=== PATIENT | male | born 1965 | race Hispanic/Latino ===

== ENCOUNTER 2017-04-26 17:42 | Emergency (ER) | payer SELFPAY ==
[2017-04-26] MEDS ORDERED: ASPIRIN 325 MG TABLET ONE (18:12)
[2017-04-26 18:21] LABS: BASOPHILS % (AUTO) 0.9 % (0.0-5.0); EOSINOPHILS % (AUTO) 5.4 % (0.0-8.0); HEMATOCRIT 45.5 % (42-54); MEAN CORPUSCULAR HEMOGLOBIN 31.2 pg (27.0-33.0); MEAN CORPUSCULAR HGB CONC 33.6 g/dL (32.0-36.0); MONOCYTES % (AUTO) 9.6 % (3.0-13.0); NEUTROPHILS % (AUTO) 61.1 % (40.0-77.0); NUCLEATED RED BLOOD CELLS 0.1 % (0.0-0.19); PLATELET COUNT (AUTO) 306 K/uL (130-400); RED BLOOD CELL COUNT(AUTO) 4.89 MIL/uL (4.50-6.20); RED CELL DISTRIBUTION WIDTH 12.8 % (11.0-15.5); WHITE BLOOD COUNT (AUTO) 12.4 K/uL (4.8-10.8)
[2017-04-26 18:40] LABS: APPEARANCE,URINE Clear (CLEAR); BILIRUBIN,URINE Negative (NEGATIVE); COLOR,URINE Yellow (YELLOW); GLUCOSE, URINE (UA) Negative (NEGATIVE); KETONES,URINE Negative (NEGATIVE); LEUKOCYTE ESTERASE ,URINE Negative (NEGATIVE); NITRATE,URINE Negative (NEGATIVE); OCCULT BLOOD,URINE Negative (NEGATIVE); PROTEIN,URINE Negative (NEGATIVE)
[2017-04-26 18:40] LABS: CARBON DIOXIDE 28 mmol/L (21-32); CHLORIDE 100 mmol/L (101-111); GLOMERULAR FILTR. RATE CALC 84 mL/min (>60); GLUCOSE,RANDOM 135 mg/dL (70-105); POTASSIUM 3.6 mmol/L (3.5-5.1); SODIUM SERUM 137 mmol/L (136-145); UREA NITROGEN, BLOOD 13 mg/dL (7-18)
[2017-04-26 18:49] LABS: AMPHET/METH SCREEN,URINE NEGATIVE (NEGATIVE); BARBITURATE SCREEN, URINE NEGATIVE (NEGATIVE); BENZODIAZEPINES SCREEN,URINE NEGATIVE (NEGATIVE); CANNABINOID SCREEN,URINE NEGATIVE (NEGATIVE); COCAINE SCREEN,URINE POSITIVE (NEGATIVE); OPIATE SCREEN,URINE NEGATIVE (NEGATIVE); PHENCYCLIDINE SCREEN,URINE NEGATIVE (NEGATIVE)
[2017-04-26 18:54] LABS: ALANINE AMINOTRANSFERASE 37 U/L (12-78); ALBUMIN 3.5 g/dL (3.5-5.0); ASPARTATE AMINOTRANSFERASE 21 U/L (10-37); BILIRUBIN,TOTAL 0.2 mg/dL (0.2-1.0); CREATINE KINASE MB < 0.5 ng/mL (0.5-3.6); CREATINE KINASE, TOTAL 93 U/L (21-232); MYOGLOBIN 21 ng/mL (10-92); TOTAL PROTEIN, SERUM 7.9 g/dL (6.0-8.3)
[2017-04-26] MEDS ORDERED: KETOROLAC TROMETHAMINE 15MG/ML ONE (19:03)
== END 2017-04-26 21:40 | disposition home or self-care (01) ==
LOC: EDH 17:42
DX: R09.1 Pleurisy (principal); Z72.0 Tobacco use
CPT/HCPCS: 36415; 71046; 80053; 80305; 81003; 82550; 82553; 83874; 84484; 85025; 85378; 87804 ×2; 93005; 96374; 99285; J1885

== ENCOUNTER 2023-10-31 06:08 | Observation (INO) | payer OTHER ==
[2023-10-28 09:41] LABS: BASOPHILS # (AUTO) 0.08 K/uL (0.00-0.20); BASOPHILS % (AUTO) 0.7 % (0.0-5.0); EOSINOPHILS # (AUTO) 0.29 K/uL (0.00-0.70); EOSINOPHILS % (AUTO) 2.7 % (0.0-8.0); HEMATOCRIT 44.8 % (42-54); IMMATURE GRANULOCYTE ABSOLUTE 0.05 K/uL (0-1); LYMPHOCYTES % (AUTO) 28.1 % (21.0-51.0); MEAN CORPUSCULAR HEMOGLOBIN 30.8 pg (27.0-33.0); MEAN CORPUSCULAR HGB CONC 33.3 g/dL (32.0-36.0); MEAN CORPUSCULAR VOLUME 92.8 fL (79-99); MONOCYTES # (AUTO) 1.1 K/uL (0.1-1.0); MONOCYTES % (AUTO) 9.9 % (3.0-13.0); NEUTROPHILS # (AUTO) 6.2 K/uL (1.8-7.7); NEUTROPHILS % (AUTO) 58.1 % (40.0-77.0); PLATELET COUNT (AUTO) 299 K/uL (130-400); RED BLOOD CELL COUNT(AUTO) 4.83 MIL/uL (4.50-6.20); WHITE BLOOD COUNT (AUTO) 10.7 K/uL (4.8-10.8)
[2023-10-28 09:45] VITALS: BP 124/81; PULSE 71; RESP 19
[2023-10-28 09:54] LABS: INR 0.94 (0.85-1.15); PROTHROMBIN TIME 10.2 SEC (9.6-11.6)
[2023-10-28 09:55] LABS: PARTIAL THROMBOPLASTIN TIME 26.2 SEC (26.3-35.5)
[2023-10-28 09:57] LABS: ALBUMIN 3.7 g/dL (3.5-5.0); CREATININE 0.9 mg/dL (0.5-1.3); POTASSIUM 4.5 mmol/L (3.5-5.1)
[2023-10-31] VITALS (29 sets, daily range): BP systolic 124–158; BP diastolic 73–91; PULSE 76–101; RESP 15–19; O2SAT 97
[~2023-10-31] VITALS: Ht 167.6 cm; Wt 72.9 kg
[2023-10-31] MEDS ORDERED: ACETAMINOPHEN 1,000 MG/100 ML VIAL IV ONE (06:37)
[2023-10-31] MEDS ORDERED: FAMOTIDINE 20MG VIAL IV ONE (06:37)
[2023-10-31] MEDS: CEFAZOLIN SODIUM 2 GM VIAL ONE (06:45)
[2023-10-31] MEDS: LACTATED RINGERS 1000ML 1,000 ML IV ONE (06:46)
[2023-10-31] MEDS ORDERED: ROPIVACAINE 0.5% 5MG/ML 30ML ONE ×2 (06:47→06:53)
[2023-10-31] MEDS ORDERED: PROPOFOL 10 MG/ML 20ML VIAL IV ONE (06:51)
[2023-10-31] MEDS ORDERED: LIDOCAINE PF 100MG/5ML (2%) SYRINGE 5ML ONE (06:51)
[2023-10-31] MEDS ORDERED: ROCURONIUM BROMIDE 10MG/1ML 5ML VL ONE (06:52)
[2023-10-31] MEDS ORDERED: FENTANYL CITRATE PF 50 MCG/1 ML 2ML VIAL ONE (06:52)
[2023-10-31] MEDS ORDERED: TRANEXAMIC ACID 1000MG/10ML ONE (06:53)
[2023-10-31] MEDS ORDERED: KETOROLAC 30MG VIAL (30MG/ML) ONE (06:53)
[2023-10-31] MEDS ORDERED: FERROUS FUMARATE 324 MG TABLET PO PRN (07:00)
[2023-10-31] MEDS ORDERED: DiphenhydrAMINE HCL 50 MG/ML VIAL IVP PRN (07:00)
[2023-10-31] MEDS: 0.9%NACL 1000ML 1,000 ML IV SCH (07:00)
[2023-10-31] MEDS ORDERED: ONDANSETRON 4MG INJ IVP PRN (07:00)
[2023-10-31] MEDS ORDERED: CYCLOBENZAPRINE HCL 10 MG TABLET PO PRN (07:00)
[2023-10-31] MEDS: TRANEXAMIC ACID 1000MG/10ML IV ONE (07:03)
[2023-10-31] MEDS ORDERED: DEXAMETHASONE SOD PHOSPHATE 10MG/ML 1ML VIAL ONE (07:13)
[2023-10-31] MEDS ORDERED: ONDANSETRON 4MG INJ ONE (07:13)
[2023-10-31] MEDS ORDERED: KETAMINE 50MG/ML SYRINGE 50 MG/ML DISP.SYRIN ONE (07:47)
[2023-10-31] MEDS ORDERED: NEOSTIGMINE METHYLSULFATE 1MG/ML IV ONE (08:41)
[2023-10-31] MEDS ORDERED: GLYCOPYRROLATE 0.2 MG/ML 5 ML VIAL ONE (08:41)
[2023-10-31] MEDS: MEPERIDINE-PF 25 MG/ML SYG ONE ×2 (09:51→10:03)
[2023-10-31] MEDS: KETOROLAC 15MG/ML VIAL (15MG/ML) ONE (10:24)
[2023-10-31] MEDS: CEFAZOLIN SODIUM 2 GM VIAL IVPB SCH (12:40)
[2023-10-31] MEDS: DOCUSATE SODIUM 100 MG CAP PO SCH (19:54)
[2023-10-31] MEDS: GABAPENTIN 100 MG CAPSULE PO SCH (19:58)
[2023-10-31] MEDS: KETOROLAC 15MG/ML VIAL (15MG/ML) IV SCH (22:53)
[2023-11-01] MEDS: KETOROLAC 15MG/ML VIAL (15MG/ML) IV PRN (04:01)
[2023-11-01] MEDS: KETOROLAC 15MG/ML VIAL (15MG/ML) ONE (04:02)
[2023-11-01 04:16] VITALS: BP 135/81; PULSE 85; RESP 18
[2023-11-01 05:11] LABS: HEMATOCRIT 36.4 % (42-54); MEAN CORPUSCULAR HEMOGLOBIN 30.7 pg (27.0-33.0); MEAN CORPUSCULAR HGB CONC 32.4 g/dL (32.0-36.0); MEAN CORPUSCULAR VOLUME 94.8 fL (79-99); RED BLOOD CELL COUNT(AUTO) 3.84 MIL/uL (4.50-6.20); RED CELL DISTRIBUTION WIDTH 13.2 % (11.0-15.5); WHITE BLOOD COUNT (AUTO) 14.6 K/uL (4.8-10.8)
[2023-11-01 05:18] LABS: CREATININE 0.9 mg/dL (0.5-1.3); POTASSIUM 3.3 mmol/L (3.5-5.1)
[2023-11-01] MEDS: CALCIUM CARB 500MG PO PRN (06:11)
[2023-11-01 08:00] VITALS: BP 123/80; PULSE 90; RESP 18
[2023-11-01] MEDS: ASPIRIN 325MG EC TAB PO SCH (08:55)
[2023-11-01] MEDS: POLYETHYLENE GLYCOL 3350 17 GM POWD.PACK PO SCH (08:57)
[2023-11-01 09:00] VITALS: O2SAT 97
[2023-11-01 12:00] VITALS: BP 131/80; PULSE 97; RESP 18
[2023-11-01 16:00] VITALS: BP 125/83; PULSE 66; RESP 18
[2023-11-01] MEDS ORDERED: HYDR-4060 PO (17:24)
[2023-11-01 20:00] VITALS: BP 126/77; PULSE 112; RESP 20; O2SAT 97
[2023-11-01] MEDS: TRAMADOL HCL 50 MG TABLET PO PRN (21:34)
[2023-11-02] MEDS: HYDROCODONE/ACETAMINOPHEN 5/325 MG TAB PO PRN (00:15)
[2023-11-02 02:01] VITALS: BP 120/80; PULSE 95; RESP 18
[2023-11-02 04:15] VITALS: BP 131/85; PULSE 91; RESP 17
[2023-11-02 07:41] VITALS: BP 128/74; PULSE 88; RESP 18
[2023-11-02 11:33] VITALS: BP 125/80; PULSE 97; RESP 18
[2023-11-02 15:47] VITALS: O2SAT 96
[2023-11-02 17:02] VITALS: BP 127/77; PULSE 95; RESP 18
[2023-11-03] MEDS ORDERED: BISACODYL 10 MG SUPP.RECT RC PRN (07:00)
== END 2023-11-02 17:25 | disposition home or self-care (01) ==
LOC: DAH 06:08 → DAHIP 06:09 → 4AH 10:51
PROVIDERS: ADMIT Student in an Organized Health Care Education/Training Program; ATTEND Student in an Organized Health Care Education/Training Program
DX: M17.12 Unilateral primary osteoarthritis, left knee (principal); M24.562 Contracture, left knee; D62 Acute posthemorrhagic anemia; Z79.899 Other long term (current) drug therapy
CPT/HCPCS: 82040; 80048 ×2; 85025; 85610; 85730; 84134; 86140; 36415 ×2; 87641; 27447; 96365; 96366; 96375; 73560; 97161; 97116 ×5; 96376; 85027; 97530 ×3; G0378 ×52; A4215 ×2; J7120; J3490 ×6; J3010; J1100; J2001; J2704; J2405; J1885 ×6; J2710; J2175 ×2; J2795 ×2; J0690 ×4; C1713 ×2; G0168; A4649 ×2; C1776; A6255; A5120; A4223; A4222; A4221; A4663; A4510

== ENCOUNTER 2024-12-26 06:29 | Observation (INO) | payer OTHER ==
[2024-12-25 11:46] VITALS: BP 149/84; PULSE 78; RESP 18; TEMP 98.4
[2024-12-25 11:49] LABS: IMMATURE GRANULOCYTE ABSOLUTE 0.07 K/uL (0-1); NUCLEATED RED BLOOD CELLS 0.0 % (0.0-0.19); PLATELET COUNT (AUTO) 307 K/uL (130-400); RED BLOOD CELL COUNT(AUTO) 5.00 MIL/uL (4.50-6.20); RED CELL DISTRIBUTION WIDTH 13.2 % (11.0-15.5); WHITE BLOOD COUNT (AUTO) 10.7 K/uL (4.8-10.8)
--- NOTE | 2024-12-25 12:00 | NUR ---
RE: IS INITIAL IS INITIAL TEACHING DONE BY RT KRIS DURING PREOP.
[2024-12-25 12:02] LABS: CREATININE 1.0 mg/dL (0.5-1.3); GLOMERULAR FILTR. RATE CALC 88.0 mL/min (>90); GLUCOSE,RANDOM 101.0 mg/dL (70-105); SODIUM SERUM 139.0 mmol/L (136-145); UREA NITROGEN, BLOOD 15.0 mg/dL (7-18)
[2024-12-25 12:11] LABS: INR 0.95 (0.85-1.15)
[~2024-12-26] VITALS: Ht 167.6 cm; Wt 80.3 kg
[2024-12-26] VITALS (27 sets, daily range): BP systolic 108–141; BP diastolic 69–93; PULSE 68–86; RESP 13–20; TEMP 97.6–98.7; O2SAT 98
[~2024-12-26 06:29] MED LIST: ACET-2743 PO; IBUP-2784 PO; METO-391 PO; TURM500C4 PO
[2024-12-26] MEDS ORDERED: SUCCINYLCHOLINE CHLORIDE 20 MG/ML 10 ML VIAL ONE (06:50)
[2024-12-26] MEDS ORDERED: LIDOCAINE PF 100MG/5ML (2%) SYRINGE 5ML ONE (06:50)
[2024-12-26] MEDS ORDERED: MIDAZOLAM HCL 1 MG/ML 2ML VIAL ONE (06:51)
[2024-12-26] MEDS ORDERED: HYDROcodone/APAP 5/325 1 TAB TABLET PO PRN (08:00)
[2024-12-26] MEDS ORDERED: CYCLOBENZAPRINE HCL 10 MG TABLET PO PRN (08:00)
[2024-12-26] MEDS ORDERED: FERROUS FUMARATE 324 MG TABLET PO PRN (08:00)
[2024-12-26] MEDS ORDERED: CALCIUM CARB 500MG PO PRN (08:00)
[2024-12-26] MEDS ORDERED: PoTASSium chl 10% ELIXIR 20MEQ 20 MEQ/15 ML UDCUP PO PRN (08:00)
[2024-12-26] MEDS: LACTATED RINGERS 1000ML 1,000 ML IV ONE (08:07)
[2024-12-26] MEDS: TRANEXAMIC ACID 1000MG/10ML ONE (08:08)
[2024-12-26] MEDS: TRANEXAMIC ACID 1000MG/10ML IV ONE (09:39)
[2024-12-26] MEDS: SUGAMMADEX SODIUM 200 MG/2 ML VIAL IV ONE (09:45)
--- NOTE | 2024-12-26 10:06 | OP ---
Operative Note: DATE OF PROCEDURE: 12/26/24 PREOPERATIVE DIAGNOSIS: Right knee osteoarthritis. POSTOPERATIVE DIAGNOSIS: Right knee osteoarthritis. PROCEDURE PERFORMED: Right knee total knee arthroplasty. SURGEON: Mary Balderas MD MARKETING CONTENT SPECIALIST: Chace Vazquez. ANESTHESIA: General with adductor canal block. ANESTHESIA: DONTAE Nguyen ESTIMATED BLOOD LOSS: 50cc. COMPLICATIONS: None. DRAINS: None. SPECIMENS REMOVED: resected bone. Not sent to pathology. IMPLANTS: [employer] II BCS size 6 Oxinium femur, size 5 tibial base plate, 32 x 7.5 mm patella, 10 mm polyethylene STATEMENT OF MEDICAL NECESSITY: The patient is a 59-year-old male who suffers from right knee osteoarthritis failing conservative management. After discussion of the risks, benefits, and alternatives with the patient, they voluntarily agreed to undergo the aforementioned procedure. DESCRIPTION OF PROCEDURE: Patient was properly identified in the preoperative holding area. Surgical site marking was verified and surgery consent reviewed. The patient was then taken to the operating room and placed in supine position on the OR table. After induction of general anesthesia, preoperative antibiotics were given, all bony prominences were well-padded, and a well padded tourniquet was applied but not inflated at this time. The right lower extremity was then prepped and draped in usual sterile fashion. Surgical time out was done verifying correct surgery, side, site, and location to be performed. We then began the procedure by exsanguinating the limb using an Esmarch and inflating the tourniquet to 350 mmHg. At this point, we made an anterior midline incision using a 10 blade, coming down sharply the level of the fascia. Skin flaps were elevated medially and laterally. We then obtained a clean 10 blade and performed a standard medial parapatellar arthrotomy. We excised the infrapatellar fat pad. We performed our soft tissue releases off of the tibia. We transected the ACL and removed the anterior portion of the medial & lateral meniscus. We then brought the knee into hyperflexion with the patella everted. We used our entry reamer to enter the femoral canal. We then placed our intramedullary cutting guide for our distal femoral cutting block. We then performed our distal femoral osteotomy ensuring appropriate rotation and removed the bony wafer. We then removed these pins and block and then used jig 2 to size the distal femur with the after mentioned size found. We then placed our 5-in-1 cutting block in 4 degrees of external rotation and took our 5 cuts ensuring to protect the patellar tendon and the collateral ligaments. We then removed the cutting block and our bony fragments using a curved osteotome. We then placed our PCL retractor subluxating the tibia anteriorly. Using an extra medullary tibial cutting guide, we hung the block for our proximal tibial cut taking 2 mm off the more diseased portion. Prior to pinning this block in place, we ensured appropriate varus/valgus alignment and posterior slope similar to the [place] slope of the patient's knee. We then performed our proximal tibial osteotomy and removed the bony wafer using Bovie electrocautery to release any remaining soft tissue attachments. We then used our tibial sizing paddle and checked once more for varus & valgus alignment and found this to be appropriate. At this point, we pinned our tibial paddle in place. We then removed the PCL retractor and subluxated the tibia posteriorly while we placed our femoral trial component. We then finished preparing the notch with the reamer and box chisel. The notch portion of the trial femoral component was then placed. A posterior stabilized polyethylene, size 9 trial was placed. The knee was then taken through range of motion and found to have stable full range of motion. We then placed a bump under the ankle and everted the patella to perform our freehand cut of the undersurface the patella. We then sized our patella and reamed to the lug holes for this. We placed our trial patellar component and begin to take the knee through range of motion. The patella had extreme lateral tracking and we performed a lateral release. There continued to be lateral tracking despite appropriate rotation of the femoral and tibial components, so we elected to go with the thinner patellar component. At this point we began removing our trial components and punched the tibial keel prior to removing our tibial trial component. Final components were opened and cement was mixed on the back table while we injected local cocktail in the posterior capsule. We then thoroughly irrigated out the bone and dried the bony surfaces. We cemented our tibial component in place ensuring to remove excess cement and placed our trial polyethylene. We then cemented our femoral component in place once again taking time to ensure excess cement was removed leg was brought into full extension to help squeeze the excess cement from around the femoral component. We then brought the knee back in a flexion to remove this portion of the cement at this point we placed the ankle in a bump thoroughly irrigated off the patellar component and cemented our patellar component in standard fashion again removing excess cement. While we waited for the cement to cure, we thoroughly irrigated out the wound with normal saline. Once our cement had cured, we took the knee through a range of motion and found full and stable range of motion. We then elected to use the size 10 polyethylene and removed our trial polyethylene. We impacted our final polyethylene component in place in standard fashion and took the knee through a range of motion check once more. This was satisfactory so we began to repair the arthrotomy using #1 Vicryl in interrupted [id number] fashion. Subcutaneous tissue was repaired using 2-0 Vicryl. Running subcuticular 3-0 Monocryl stitch with Dermabond placed over this for the skin. We then applied a foam barrier dressing and a pressure dressing consisting of 4 x 4's fluffs and an Nelson wrap. The tourniquet was then deflated. Patient was awakened from anesthesia, and they were taken to the recovery room in stable condition. MARY BALDERAS MD Dec 26, 2024 10:06
--- NOTE | 2024-12-26 11:27 | HMCIMG ---
EXAM: CR right Knee, 2 View. CLINICAL HISTORY: S/P RT TKA SURGERY COMPARISON: None provided. FINDINGS: Cemented right total knee arthroplasty is in near anatomic alignment with no periprosthetic fracture appreciated. Appropriate surgical changes about the right knee joint. IMPRESSION: 1. Status post right total knee arthroplasty with near anatomic alignment, no periprosthetic fracture. /Lueders
--- NOTE | 2024-12-26 11:30 | NUR ---
PATIENT ARRIVED TO UNIT ALERT AND ORIENTED X4. 0/10 PAIN REPORTED. CAP REFILL LESS THAN 3 SECONDS. BLE PULSES STRONG. PATIENT IS ABLE TO WIGGLE TOES. R. KNEE CATRINA WRAPPED. PATIENT WAS ENCOURAGED TO CONTINUE WITH IS BREATHS. PAIN MANAGEMENT WAS ALSO EXPLAINED TO PT. VERBALIZED UNDERSTANDING. NO OTHER NEEDS VERBALIZED. CALL LIGHT WITHIN REACH BED LOW AND LOCKED.
[2024-12-26] MEDS: TURMERIC PO SCH (11:56)
[2024-12-26] MEDS: TURMERIC ROOT EXTRACT PO SCH (11:56)
--- NOTE | 2024-12-26 12:25 | DS ---
Discharge Summary Hospital Course Summary: The patient was admitted to the hospital postoperatively on 12/26/2024 after undergoing right total knee arthroplasty. They did well with routine postoperative pain control. They worked well with physical therapy. They developed some acute blood loss anemia but remained asymptomatic. The hospital course was otherwise uncomplicated. They were subsequently able to be discharged on postoperative day 1 once discharge arrangements were made with home health physical therapy. Senior Net Architect(s): none Procedure(s): Right total knee arthroplasty, 12/26/2024 Assessment/Plan: ASSESSMENT: Status post right total knee arthroplasty Postoperative acute blood loss anemia PLAN: See discharge instructions Discharge Instructions: Begin working with home health physical therapy. Dressing may be removed 12/28/2024 and left open to air. Showers ok allowing soap and water to run over the wound. Pat dry. Do not submerge wound in tub/pool. Do not apply ointments. Do not apply Betadine. Do not apply peroxide. Ice packs to decrease pain/swelling. Prescriptions have been sent to the pharmacy: *Irwin 5/325mg 1-2 tab every 6 hours as needed for severe pain. (please call for refills) Cyclobenzaprine 5mg 1 tab every 8 hours as needed for muscle spasm pain. Gabapentin 100mg 1 tab every 8 hours (may discontinue if drowsy). Colace 100mg 1 tab orally twice a day as needed for constipation. Aspirin 325mg twice a day for 30 days to prevent blood clots. Followup appointment scheduled on 01/16/2025 at 8:45 AM at [facility]. Home Medications: Reported Medications Ibuprofen (Ibuprofen 200 mg Tablet) 200 Mg Tablet, 200 MG PO Q4HPRN PRN for PAIN, TAB 12/25/24 Acetaminophen (Tylenol Extra Strength) 500 Mg Tablet, 500 MG PO Q6HPRN PRN for PAIN, TAB 12/25/24 Turmeric/Turmeric Root Extract (Turmeric 500 mg Capsule) 450 Mg-50 Mg Capsule, 2250 MG PO DAILY, CAP 12/25/24 Metoprolol Succinate (Metoprolol Succinate) 50 Mg Tab.er.24h, 50 MG PO DAILY, TAB 12/25/24 Discontinued Scripts Hydrocodone/Acetaminophen (Hydrocodon-Acetaminophen 5-325) 5 Mg-325 Mg Tablet, 1 EACH PO Q4HPRN PRN for PAIN for 7 Days, #42 TAB 0 Refills Prov:CORINNE NJ MD 11/01/23 CORINNE NJ MD Dec 26, 2024 12:25
[2024-12-26] MEDS: 0.9%NACL 1000ML 1,000 ML IV SCH (12:42)
--- NOTE | 2024-12-26 12:52 | NUR ---
No notification received regarding patient arrival to PACU or floor, via spectra or teams.
[2024-12-26] MEDS: HYDROcodone/APAP 5/325 1 TAB TABLET PO PRN ×2 (13:17→16:50)
--- NOTE | 2024-12-26 14:00 | NUR ---
Pt found ready for eval, eating tray. Reports 8/10 pain but reports he had not asked for pain meds. Education provided on POC, DC planning, pain management and falls precautions. SCDS placed by PT staff. Pt back to bed with alarm on, call campbell in reach, ice in place. RN providing pain medications.
--- NOTE | 2024-12-26 14:30 | NUR ---
ORTHO COORDINATOR: TEACHING REGARDING DVT AND PNEUMONIA PREVENTION, PAIN EXPECTATIONS AND PAIN MANAGEMENT. PATIENT IN BED. B SCD SLEEVES IN PLACE AND FUNCTIONING. INCENTIVE SPIROMETER AT BEDSIDE. PATIENT REPORTS RESPIRATORY THERAPY JUST PROVIDED INSTRUCTIONS ON USE OF INCENTIVE SPIROMETER. PATIENT VERBALIZED CORRECT FREQUENCY OF USE FOR DEVICE. PATIENT RETURN DEMONSTRATED PROPER FOOT FLEXION AND EXTENSION EXERCISES. PATIENT HAD LEFT KNEE COMPLETED IN 2023. PAIN EXPECTATIONS REALISTIC. PATIENT INTENDS TO DISCHARGE HOME WITH HOME HEALTH PHYSICAL THERAPY. REVIEWED NUMERIC PAIN SCALE, ENCOURAGED PATIENT TO PERFORM SELF PAIN EVALUATIONS AT THE MINIMUM EVERY FOUR HOURS. WHEN CALLING FOR NURSE, ASSIGN A NUMERIC VALUE AND TYPE OF PAIN. REMINDED PATIENT PAIN MEDICATIONS ARE NOT SCHEDULED, MUST BE REQUESTED. SET EXPECTATION FOR PATIENT TO SHOWER TOMORROW, RATIONALE PROVIDED. PATIENT VERBALIZED UNDERSTANDING TO ALL INSTRUCTIONS.
--- NOTE | 2024-12-26 16:48 | NUR ---
[facility] CM MET WITH PT THIS AFTERNOON, INITIAL ASSESSMENT DONE. PATIENT IS INDEPENDENT PRIOR TO SURGERY, LIVES AT HOME WITH HIS SISTER. PT ALREADY HAS A STANDARD WALKER, 3IN1 CHAIR, CANE, RAISED TOILET SEAT, SHOWER CHAIR, BPM. DENIES ANY OTHER EQUIPMENT/SERVICES. FEELS SAFE TO GO BACK HOME, STILL DRIVE AND WORK SELF EMPLOYED, SISTER ABLE TO ASSIST WITH TRANSPORTATION AND NEEDS NECESSARY. DISCUSSED MD RECOMMENDATIONS FOR HOME W/HOME HEALTH PT ALREADY HAS DME BUT NEED PT AT HOME, PT AGREEABLE, CONSENT SIGNED [facility] FOR [facility]. [facility] HOME W/HH ONCE APPROVED. RICHA SENT PACKET TO TONYA Magdaleno/[facility], [email or web address], [email or web address] VIA SECURE EMAIL. PENDING REP RESPONSE. PT PENDING APPROVAL FOR HH. CM TO CONTINUE TO FOLLOW UP. Addendum: 12/26/24 at 1651 by WALTER CORDERO LVN CM Amended: Links added.
[2024-12-27] VITALS: BP 112/75; PULSE 74; RESP 20; TEMP 98.1
[2024-12-27 03:45] LABS: NUCLEATED RED BLOOD CELLS 0.0 % (0.0-0.19); PLATELET COUNT (AUTO) 246.0 K/uL (130-400); RED BLOOD CELL COUNT(AUTO) 3.83 MIL/uL (4.50-6.20); RED CELL DISTRIBUTION WIDTH 13.1 % (11.0-15.5); WHITE BLOOD COUNT (AUTO) 15.1 K/uL (4.8-10.8)
[2024-12-27 04:00] VITALS: BP 117/74; PULSE 75; RESP 18; TEMP 98.6
[2024-12-27 04:03] LABS: CREATININE 1.0 mg/dL (0.5-1.3); GLOMERULAR FILTR. RATE CALC 88.0 mL/min (>90); GLUCOSE,RANDOM 101.0 mg/dL (70-105); SODIUM SERUM 138.0 mmol/L (136-145); UREA NITROGEN, BLOOD 17.0 mg/dL (7-18)
--- NOTE | 2024-12-27 07:59 | PN ---
Ortho postop day one. This morning the patient is awake alert and oriented. He is reporting mild to moderate pain. He is out of bed seated in a chair. The Nelson bandage has been removed from the extremity the dressing is intact anteriorly. Bilateral SCD sleeves are currently on. Ice also present to the extremity. Gastrocnemius a soft nontender. Negative Homans. He is alternating extension and flexion using a footstool while seated. Vital signs have remained stable. Afebrile. Laboratory results reviewed. Noted to have a drop in hemoglobin and hematocrit as expected after TKA. Patient is asymptomatic. We will continue to observe and address per protocol as necessary. Voiding on his own without difficulty and has already had a bowel movement this morning. Operative findings discussed with the patient. Ambulated yesterday with therapy about 50 ft. Reinforced incentive spirometry. Pending further physical therapy this morning. Anticipating discharge today after approval to home health/PT with a APC. Assessment: Status post right total knee arthroplasty. Asymptomatic acute postoperative blood loss anemia. Plan: Continue with Dr. Balderas TKA protocol and discharge planning. Asymptomatic acute postoperative blood loss anemia addressed with the protocol as necessary Vitals/Labs Vital Signs Date Time Temp Pulse Resp B/P (MAP) Pulse Ox O2 Delivery O2 Flow Rate FiO2 12/27/24 04:00 98.6 75 18 117/74 97 Room Air 12/26/24 20:55 0 21 Laboratory Tests 12/27/24 03:21 Medications Current Medications Cefazolin Sodium 2 gm STK-MED ONCE .ROUTE Last administered on 12/26/24at 07:49; Start 12/26/24 at 06:45; Stop 12/26/24 at 06:45; Status DC Lactated Ringer's 1,000 ml @ As Directed STK-MED ONCE IV Last administered on 12/26/24at 08:07; Start 12/26/24 at 06:45; Stop 12/26/24 at 06:45; Status DC Lidocaine HCl 100 mg STK-MED ONCE .ROUTE; Start 12/26/24 at 06:50; Stop 12/26/24 at 06:50; Status DC Ondansetron HCl 4 mg STK-MED ONCE .ROUTE; Start 12/26/24 at 06:50; Stop 12/26/24 at 06:50; Status DC Dexamethasone Sodium Phosphate 10 mg STK-MED ONCE .ROUTE; Start 12/26/24 at 06:50; Stop 12/26/24 at 06:50; Status DC Succinylcholine Chloride 200 mg STK-MED ONCE .ROUTE; Start 12/26/24 at 06:50; Stop 12/26/24 at 06:51; Status DC Propofol 200 mg STK-MED ONCE IV; Start 12/26/24 at 06:50; Stop 12/26/24 at 06:51; Status DC Midazolam HCl 2 mg STK-MED ONCE .ROUTE; Start 12/26/24 at 06:51; Stop 12/26/24 at 06:51; Status DC Rocuronium [place] 50 mg STK-MED ONCE .ROUTE; Start 12/26/24 at 06:51; Stop 12/26/24 at 06:51; Status DC Fentanyl Citrate 100 mcg STK-MED ONCE .ROUTE; Start 12/26/24 at 06:51; Stop 12/26/24 at 06:52; Status DC Ketamine HCl 50 mg STK-MED ONCE .ROUTE; Start 12/26/24 at 06:55; Stop 12/26/24 at 06:55; Status DC Ropivacaine 150 mg STK-MED ONCE .ROUTE; Start 12/26/24 at 07:04; Stop 12/26/24 at 07:05; Status DC Tranexamic Acid 1,000 mg STK-MED ONCE .ROUTE Last administered on 12/26/24at 08:08; Start 12/26/24 at 07:26; Stop 12/26/24 at 07:29; Status DC Ketorolac Tromethamine 30 mg STK-MED ONCE .ROUTE Last administered on 12/26/24at 08:42; Start 12/26/24 at 07:26; Stop 12/26/24 at 07:29; Status DC Ropivacaine 150 mg STK-MED ONCE .ROUTE Last administered on 12/26/24at 08:43; Start 12/26/24 at 07:26; Stop 12/26/24 at 07:29; Status DC Sodium Chloride 1,000 ml @ 100 mls/hr Q10H IV Last administered on 12/26/24at 12:42; Start 12/26/24 at 08:00; Stop 12/27/24 at 07:59 Polyethylene Glycol 17 gm DAILY PO; Start 12/26/24 at 09:00; Stop 01/25/25 at 08:59 Bisacodyl 10 mg DAILY PRN RC; Start 12/29/24 at 08:00; Stop 01/28/25 at 07:59 Ketorolac Tromethamine 15 mg Q6H PRN IV; Start 12/27/24 at 08:00; Stop 01/01/25 at 07:59 Ferrous Fumarate 324 mg DAILY PRN PO; Start 12/26/24 at 08:00; Stop 01/25/25 at 07:59 Ondansetron HCl 4 mg Q6H PRN IVP; Start 12/26/24 at 08:00; Stop 01/25/25 at 07:59 Calcium Carbonate 500 mg Q12H PRN PO; Start 12/26/24 at 08:00; Stop 01/25/25 at 07:59 Diphenhydramine HCl 25 mg Q6H PRN IVP; Start 12/26/24 at 08:00; Stop 01/25/25 at 07:59 Cefazolin Sodium 2 gm Q8H IVP Last administered on 12/26/24at 20:54; Start 12/26/24 at 13:00; Stop 12/26/24 at 21:01; Status DC Cyclobenzaprine HCl 5 mg Q8H PRN PO; Start 12/26/24 at 08:00; Stop 01/25/25 at 07:59 Gabapentin 100 mg TID PO Last administered on 12/26/24at 20:54; Start 12/26/24 at 09:00; Stop 01/25/25 at 08:59 Aspirin 325 mg DAILY PO; Start 12/27/24 at 09:00; Stop 01/26/25 at 08:59 Ketorolac Tromethamine 15 mg Q8H IV Last administered on 12/26/24at 23:38; Start 12/26/24 at 08:00; Stop 12/27/24 at 00:01; Status DC Docusate Sodium 100 mg BID PO Last administered on 12/26/24at 20:54; Start 12/26/24 at 09:00; Stop 01/25/25 at 08:59 Potassium Chloride 100 ml @ 100 mls/hr AD PRN IV; Start 12/26/24 at 08:00; Stop 01/25/25 at 07:59 Potassium Chloride 20 meq AD PRN PO; Start 12/26/24 at 08:00; Stop 01/25/25 at 07:59 Potassium Chloride 20 meq AD PRN PO; Start 12/26/24 at 08:00; Stop 01/25/25 at 07:59 Tramadol HCl 50 mg Q6H PRN PO; Start 12/26/24 at 08:00; Stop 12/31/24 at 07:59 Acetaminophen/ Hydrocodone Bitart Q4H PRN PO; Start 12/26/24 at 08:00; Stop 12/26/24 at 08:00; Status DC Metoprolol Succinate 50 mg DAILY PO; Start 12/26/24 at 09:00; Stop 01/25/25 at 08:59 Home Med (Turmeric/ Turmeric Root Extract (Turme... DAILY PO; Start 12/26/24 at 09:00; Stop 01/25/25 at 08:59 Rocuronium [place] 50 mg STK-MED ONCE .ROUTE; Start 12/26/24 at 08:28; Stop 12/26/24 at 08:29; Status DC Tranexamic Acid 1,000 mg STK-MED ONCE IV Last administered on 12/26/24at 09:39; Start 12/26/24 at 09:39; Stop 12/26/24 at 09:40; Status DC Morphine Sulfate 2 mg STK-MED ONCE .ROUTE Last administered on 12/26/24at 10:29; Start 12/26/24 at 10:26; Stop 12/26/24 at 10:26; Status DC Fentanyl Citrate 100 mcg STK-MED ONCE .ROUTE Last administered on 12/26/24at 10:49; Start 12/26/24 at 10:43; Stop 12/26/24 at 10:44; Status DC Ketorolac Tromethamine 15 mg STK-MED ONCE .ROUTE; Start 12/26/24 at 10:56; Stop 12/26/24 at 10:57; Status DC Acetaminophen/ Hydrocodone Bitart 1 tab Q4H PRN PO Last administered on 12/26/24at 22:20; Start 12/26/24 at 12:30; Stop 12/31/24 at 12:29 Acetaminophen/ Hydrocodone Bitart 2 tab Q4H PRN PO Last administered on 12/27/24at 03:39; Start 12/26/24 at 12:30; Stop 12/31/24 at 12:29 SUMI CHOWDARY NP Dec 27, 2024 07:59
[2024-12-27 08:00] VITALS: BP 111/65; PULSE 84; RESP 20; TEMP 98.7
[2024-12-27] MEDS: ASPIRIN 325MG EC TAB PO SCH (08:19)
[2024-12-27] MEDS: PoTASSium chloRIDE 20MEQ ER 20 MEQ ERTAB PO PRN (08:20)
[2024-12-27 08:30] VITALS: O2SAT 96
[2024-12-27 12:00] VITALS: BP 125/83; PULSE 78; RESP 19; TEMP 98.2
--- NOTE | 2024-12-27 15:30 | NUR ---
Ortho Coordinator: Reinforced teaching. Patient in bed. Dressing clean, dry and intact. B SCD sleeves in place and functioning. Patient pain controlled. Patient using and verbalizes frequency of use of incentive spirometer. Patient intends to discharge home with home health physical therapy. Reviewed next steps. Patient encouraged to continue to premedicate prior to physical therapy sessions and during periods of high activity, to continue foot flexion and extension exercises, ambulate, hydrate and continue use of incentive spirometer until activity levels increase. Patient concerned about getting out of bed by himself. Instructed patient on proper technique. Patient return demonstrated. Patient does feel comfortable transferring to chair and into bed. No additional questions or concerns at this time. Patient reports successful bowel movement and showered today.
[2024-12-27 16:00] VITALS: BP 111/83; PULSE 78; RESP 18; TEMP 99.3
[2024-12-27] MEDS ORDERED: ASPI-891 PO (17:11)
[2024-12-27] MEDS ORDERED: CYCL-309 PO (17:11)
[2024-12-27] MEDS ORDERED: GABA100C PO (17:11)
[2024-12-27] MEDS ORDERED: HYDR-4060 PO (17:11)
[2024-12-27] MEDS ORDERED: DOCU-116 PO (17:11)
--- NOTE | 2024-12-27 18:17 | NUR ---
PATIENT DISCHARGE PERIPHERAL IV REMOVED. CATHETER INTACT. DISCHARGE INSTRUCTIONS GIVEN. PATIENT AWARE TO F/U WITH [facility] 01/16 AT 8:30 AM. PRESCRIPTIONS FAXED TO PHARMACY. DRESSING CLEAN DRY AND INTACT. NO DRAINAGE NO REDNESS NOTED. BRUISING NOTED TO AREA. PATIENT REPORTS PAIN 06/04. DRESSING EDUCATION PROVIDED. ALL QUESTIONS ANSWERED. REPORT CALLED TO [facility]. S/W ANDRZEJ WRAY. ALL QUESTIONS ANSWERED.
== END 2024-12-27 18:40 | disposition home or self-care (01) ==
LOC: DAH 06:29 → DAHIP 06:30 → 4AH 11:30
PROVIDERS: ADMIT Student in an Organized Health Care Education/Training Program; ATTEND Student in an Organized Health Care Education/Training Program
DX: M17.11 Unilateral primary osteoarthritis, right knee (principal); M25.561 Pain in right knee; I10 Essential (primary) hypertension; F17.210 Nicotine dependence, cigarettes, uncomplicated; D62 Acute posthemorrhagic anemia; J35.1 Hypertrophy of tonsils; Z79.899 Other long term (current) drug therapy; Z98.890 Other specified postprocedural states
CPT/HCPCS: 82040; 80048 ×2; 85025; 85610; 85730; 84134; 86140; 36415 ×2; 87641; 27447; 96376; 96365; 96366; 96375; 73560; 97161; 97116 ×3; 97530 ×4; 85027; G0378 ×35; A4663; A4649 ×3; J7120; J3010 ×2; J3490 ×5; J1100; J0330; J2270; J2003; J2250; J2704; J2405; J1885 ×4; J2795 ×2; J0690 ×3; C1713 ×2; C1776 ×2; A4930; A6255; A5120; A4215; A4223 ×2; A4213; A4222; A4221; A4216